=== PATIENT | male | born 1965 | race Caucasian/White ===

== ENCOUNTER 2023-04-27 13:07 | Outpatient (CLI) | payer SELFPAY | END 2023-04-27 23:59 | disposition left against medical advice (07) | LOC: EMS 13:07 | DX: S61.012A Laceration without foreign body of left thumb without damage to nail, initial encounter (principal); W33.11XA Accidental malfunction of shotgun, initial encounter; Y92.89 Other specified places as the place of occurrence of the external cause ==

== ENCOUNTER 2023-04-27 13:52 | Emergency (ER) | payer MEDICAID ==
[2023-04-27 14:07] VITALS: BP 160/90; O2SAT 100
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
[2023-04-27] MEDS: IBUPROFEN 800 MG TABLET PO STA (14:40)
[2023-04-27] MEDS: TETANUS/DIPHTHERIA/PERTUSSIS 0.5 ML SYRINGE IM ONE (14:40)
[2023-04-27] MEDS ORDERED: BACITRACIN ZINC OINT 1 PACKET TOP STA (15:30)
== END 2023-04-27 15:30 | disposition home or self-care (01) ==
LOC: ED 13:52
DX: S69.92XA Unspecified injury of left wrist, hand and finger(s), initial encounter (principal); S61.422A Laceration with foreign body of left hand, initial encounter; W33.01XA Accidental discharge of shotgun, initial encounter; Y92.89 Other specified places as the place of occurrence of the external cause; Z23 Encounter for immunization
CPT/HCPCS: 13131; 90471